=== PATIENT | male | born 1980 | race Caucasian/White ===

== ENCOUNTER → 2023-05-20 | Outpatient (CLI) | payer OTHER | LOC: M RAD 16:07 | PROVIDERS: ATTEND Physician Assistant | DX: M47.816 Spondylosis without myelopathy or radiculopathy, lumbar region (principal) ==

== ENCOUNTER → 2023-08-09 | Outpatient (CLI) | payer OTHER | LOC: M RAD 08:41 | PROVIDERS: ATTEND Psychiatry & Neurology Neurology | DX: S06.2X9D Diffuse traumatic brain injury with loss of consciousness of unspecified duration, subsequent encounter (principal); G43.719 Chronic migraine without aura, intractable, without status migrainosus; Y93.9 Activity, unspecified; Y92.9 Unspecified place or not applicable ==

== ENCOUNTER 2025-07-18 08:36 | Day surgery (SDC) | payer OTHER ==
[~2025-07-18] VITALS: Ht 177.8 cm; Wt 94.1 kg
[2025-07-18] MEDS ORDERED: FAMOTIDINE 20 MG/2 ML VIAL IVP ONE (08:55)
[2025-07-18] MEDS: LR 1,000 ML IV SCH (09:24)
[2025-07-18] MEDS ORDERED: KETOROLAC 30 MG/ML 1 ML VIAL As Ordered ONE (11:22)
[2025-07-18] MEDS ORDERED: ACETAMINOPHEN 1000MG/100ML IV BAG As Ordered ONE (11:22)
[2025-07-18] MEDS ORDERED: MIDAZOLAM INJ 2 MG/2 ML VIAL As Ordered ONE (11:22)
[2025-07-18] MEDS ORDERED: LIDOCAINE 2% 100 MG/5 ML SDV (FOR ANES.) As Ordered ONE (11:22)
[2025-07-18] MEDS ORDERED: GLYCOPYRROLATE INJ 0.2 MG/ML 2 ML VIAL As Ordered ONE (11:22)
[2025-07-18] MEDS ORDERED: ONDANSETRON 4MG/2ML VIAL As Ordered ONE (11:28)
[2025-07-18] MEDS: ceFAZolin SOD 2 GM IV ONCE IV ONE (11:48)
[2025-07-18 12:23] VITALS: BP 105/66; TEMP 98.1; O2SAT 96
== END 2025-07-18 13:05 | disposition home or self-care (01) ==
LOC: M SDC 08:36
PROVIDERS: ATTEND Urology
DX: N20.0 Calculus of kidney (principal); R94.31 Abnormal electrocardiogram [ECG] [EKG]; Z95.0 Presence of cardiac pacemaker
CPT/HCPCS: 50592; 74018; J0688; J1885; J2250; J3010

== ENCOUNTER → 2025-08-06 | Outpatient (REF) | payer OTHER | LOC: M SMT 16:42 | PROVIDERS: ATTEND Urology | DX: Z96.0 Presence of urogenital implants (principal) ==